=== PATIENT | male | born 1990 | race Caucasian/White ===

== ENCOUNTER 2017-12-03 22:25 | Emergency (ER) | payer OTHER ==
[~2017-12-03 22:25] MED LIST: CEPH500C24 PO; CYCL10TA29 PO; IBUP400T13 PO; IBUP600T22 PO; LOR5/325 PO; MET800 PO; OXYC-854 PO; OXYC-865 PO; PER PO; SILV20CR2 TP
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
[2017-12-03 22:29] VITALS: BP 132/86
[2017-12-03] MEDS ORDERED: PROPARACAINE 0.5% OP 15ML BTL OU ONE (22:30)
[2017-12-03] MEDS ORDERED: FLUORESCEIN SOD 1 MG 1 EA STRP OU ONE (22:30)
[2017-12-03] MEDS ORDERED: ACET/HYDROC 5/325MG TH ER ONLY 2 TAB/BOTTLE PO ONE (22:45)
[2017-12-03] MEDS ORDERED: TOBRAMYCIN/DEX OP SUSP 2.5 ML OU ONE (22:45)
== END 2017-12-03 23:00 | disposition home or self-care (01) ==
LOC: ER 22:36
DX: H16.133 Photokeratitis, bilateral (principal)
CPT/HCPCS: 99283

== ENCOUNTER 2018-06-11 18:46 | Emergency (ER) | payer OTHER ==
[2018-06-11 19:40] VITALS: BP 147/88
[2018-06-11] MEDS ORDERED: CEPH500C24 PO (20:04)
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
== END 2018-06-11 20:12 | disposition home or self-care (01) ==
LOC: ER 18:55
DX: S81.811A Laceration without foreign body, right lower leg, initial encounter (principal)
CPT/HCPCS: 99282